=== PATIENT | male | born 1965 | race Caucasian/White ===

== ENCOUNTER → 2021-06-13 10:54 | Outpatient (REF) | payer OTHER, SELFPAY ==
--- NOTE | 2021-06-13 10:59 | CA_ITS ---
Transthoracic Echocardiogram Patient (Last, First, Middle): Willian Alvarez J Gender: Male Date of : 1965 Age: 56 Procedure Date: 06/13/2021 Procedure Type: Transthoracic Echocardiogram Location: OP Height: 170.18 cm Weight: 65.77 kg BSA: 1.76 m2 Heart Rate: bpm BP: 108 / 83 mmHg [employer]ung Nut [employer]er: JOANN Referring MD: Hudson Vasquez MD Symptoms: Z86.79 HX CMP, I45.10 RBBB Study Quality: Good ECG Rhythm: Sinus Conclusions: - The left ventricular systolic function is mildly decreased. The visually estimated ejection fraction is between 45-50%. - There is mildly decreased right ventricular systolic function. - No obvious valvular pathology seen on this study. Findings Left Ventricle Normal left ventricular cavity size. There is normal left ventricular wall thickness. The left ventricular systolic function is mildly decreased. The visually estimated ejection fraction is between 45-50%. There is no evidence of regional wall motion abnormalities. Diastolic function is normal for age. Right Ventricle Normal right ventricular cavity size. There is mildly decreased right ventricular systolic function. TAPSE 1.6cm. Atria Both atria are normal in size. Aortic Valve There is a normal trileaflet aortic valve. There is no aortic valve stenosis. There is no aortic valve regurgitation. Mitral Valve The mitral valve appears normal. There is trace mitral valve regurgitation. There is no mitral valve stenosis. Pulmonic Valve The pulmonic valve was not well visualized. Tricuspid Valve Normal tricuspid valve structure. There is trace tricuspid valve regurgitation. The pulmonary artery systolic pressure is normal. Great Vessels The asc aorta is normal in size. Venous The inferior vena cava is normal in size and collapses greater than 50% with inspiration. Pericardium/Pleural There is no evidence of pericardial effusion. Prior Study Comparison Changes noted compared to prior study dated: 05/05/2019. Slight decrease in LVEF; RV systolic function. Recommendations, Care & Conclusions No obvious valvular pathology seen on this study. Measurements 2D Linear Measurements IVSd: 1.17 0.6-0.9/0.6-1.0 cm LVIDd: 4.66 3.9-5.3/4.2-5.9 cm LVIDd Index: 2.65 2.4-3.2/2.2-3.1 cm/m2 LVIDs: 3.32 2.0-3.6 cm LVPWd: 0.98 0.7-1.1 cm Ao Root: 2.80 2.1-3.5 cm LA Diam: 2.60 2.7-3.8/3.0-4.0 cm LAIDs Index: 1.48 1.5-2.3 cm/m2 LV Mass: 223.50 67-162/88-224 g LV Mass Index: 126.99 43-95/49-115 g/m2 LVOT Diam: 2.10 3.0+(-)1.3 cm 2D Systolic Function EF 4C: 55.10 >55% EF 2C: 47.40 >55% EF BiP: 51.50 >55% Mitral Valve MV Pk E: 0.59 MV PK A: 0.60 MV Decel Time: 46.00 E/A: 1.00 E'Lateral: 8.27 E'Medial: 6.64 E/E' Med: 8.90 E/E' Lat: 7.10 PHT: 13.00 MVA PHT: 16.92 Decel Bibb: 12.84 Aortic Valve AoV Pk Bacilio: 1.14 AoV Pk Grad: 5.00 LVOT LVOT Pk Bacilio: 0.86 LVOT Mn Bacilio: 0.58 LVOT VTI: 0.13 LVOT Pk Grad: 3.00 LVOT Mn Grad: 2.00 LVOT Diam: 2.10 LVOT Area: 3.46 Diastolic Function MV Pk E: 0.59 MV Pk A: 0.60 E/A: 1.00 E'Medial: 6.64 E/E' Med: 8.90 E' Laterial: 8.27 E/E' Lat: 7.10 Right Ventricle TAPSE (mm): 1.83 Tricuspid Valve TR Pk Bacilio: 2.23 TR Pk Grad: 20.00 RA Press: 3.00 RVSP: 23.00 Great Vessels Aorta Ao Root-2D: 2.80 2.0-3.7 cm Ao Asc: 3.20 2.1-3.4 cm Updated in Other Vendor System with Status of Final Ugo Wheeler MD electronically signed on 06/14/2021 11:51:23 AM with status of Final
== END ==
LOC: HO.CARD 10:54
PROVIDERS: Visit Provider Internal Medicine Cardiovascular Disease
DX: I45.10 Unspecified right bundle-branch block (principal); Z86.79 Personal history of other diseases of the circulatory system
CPT/HCPCS: 93306

== ENCOUNTER 2021-06-22 12:55 | Outpatient (REF) | payer OTHER, SELFPAY | END 2021-06-22 12:56 | disposition home or self-care (01) | LOC: HO.HMGCLDS 12:55 | PROVIDERS: PCP Nurse Practitioner Family; Visit Provider Internal Medicine | DX: Z20.822 Contact with and (suspected) exposure to COVID-19 (principal) | CPT/HCPCS: C9803; U0003; U0005 ==

== ENCOUNTER 2022-01-13 21:59 | Emergency (ER) | payer OTHER, SELFPAY ==
[2022-01-13 22:38] VITALS: BP 117/77; BP 143/80; PULSE 73; PULSE 95; RESP 14; TEMP 36.4; O2SAT 97; O2SAT 98; BMI 21.5
--- NOTE | 2022-01-13 22:39 | ED.OVERDOSE ---
HPI - Overdose General Chief Complaint: ETOH/Substance Use Stated Complaint: overdose Time Seen by Provider: 01/13/22 22:12 Source: patient Mode of arrival: EMS History of Present Illness HPI Narrative: 56-year-old male who states that he has been sober for 1 year and is brought in by EMS after he was found unresponsive at the [facility] and EMS administered Narcan. Security here at the hospital seized a bag of heroin from the patient that he was trying to hide. Related Data Previous Rx's Medication Instructions Recorded lisinopril 10 mg tablet 10 mg PO DAILY 90 Days #90 tab 06/15/21 metoprolol succinate 100 mg 100 mg PO DAILY 90 Days #90 tab 06/15/21 tablet,extended release 24 hr ibuprofen 800 mg tablet 800 mg PO BID PRN #60 tab 08/13/21 Allergies Allergy/AdvReac Type Severity Reaction Status Date / Time No Known Allergies Allergy Unverified 07/27/20 15:09 Review of Systems Review of Systems: Pertinent positives and negatives as stated in HPI 10 point review of systems is otherwise negative. PMFSH Past Medical History Source: nursing notes reviewed Medical History HTN (hypertension) Social History Social History Advance Directives: No Advance Directives Information Provided: No Physical Exam Vital Signs: Vital Signs: Last Vital Signs Temp 97.5 F 01/13/22 22:38 Pulse 73 01/13/22 22:38 Resp 14 01/13/22 22:38 BP 143/80 H 01/13/22 22:38 Pulse Ox 97 01/13/22 22:38 BMI result Body Mass Index 21.5 VITAL SIGNS: Reviewed. GENERAL: Well developed, well nourished, in no acute distress. HEAD: Normocephalic/atraumatic, EYES: PERRLA, EOMI bilateral pupils are pinpoint OROPHARYNX: no oral lesions noted, posterior pharynx clear NECK: Supple, no adenopathy LUNGS: Normal breath sounds. No adventitious sounds or accessory muscle use. CARDIOVASCULAR: Regular rate and rhythm without noted murmurs ABDOMEN: Soft, non-tender, non-distended with bowel sounds. NEUROLOGIC: Alert and oriented x 4. Strength and sensation to light touch were grossly intact x 4. Course Course Course Narrative: 56-year-old male with history and clinical presentation consistent with her 1 overdose that was accidental in nature. Patient is doing well, alert, oriented x4. He will be discharged with home Narcan after to hours observation. On re-evaluation patient is doing well, alert and oriented x4, oxygenating well on room air and otherwise stable for discharge to home. Once again, patient was discharged home Narcan. Discharge Plan Discharge Clinical Impression: Accidental overdose Patient Disposition: Home, Self-Care Instructions: Adult Overdose (ED) Additional Instructions: Please follow-up with your primary care doctor Prescriptions: No Action lisinopril 10 mg tablet 10 mg PO DAILY 90 Days Qty: 90 3RF metoprolol succinate 100 mg tablet extended release 24 hr 100 mg PO DAILY 90 Days Qty: 90 0RF ibuprofen 800 mg tablet 800 mg PO BID PRN (Reason: for pain) Qty: 60 2RF
[2022-01-13] MEDS: Naloxone HCl Nasal TAKE HOME 4 MG SPRAY NOSTRILALT (23:45)
== END 2022-01-13 23:47 | disposition home or self-care (01) ==
PROVIDERS: Emergency Provider Student in an Organized Health Care Education/Training Program
DX: T40.1X1A Poisoning by heroin, accidental (unintentional), initial encounter (principal); Y92.9 Unspecified place or not applicable; Z79.899 Other long term (current) drug therapy; Z71.51 Drug abuse counseling and surveillance of drug abuser
CPT/HCPCS: 99283

== ENCOUNTER 2023-05-23 11:35 | Outpatient (AMB) | payer OTHER, SELFPAY ==
--- NOTE | 2023-05-23 11:36 | AM.OFFWIN_ITS ---
Intake Vital Signs 05/23/23 11:40 Height 5 ft 10 in Weight 148 lb BMI 21.2 BP 120/78 Blood Pressure Location Rt brachial Position Sitting Pulse 74 Pulse Source Pulse Oximeter Temp 97.6 F Temp Source Temporal Artery Scan Pulse Oximetry (%) 98 Oxygen Delivery Method Room Air Intake Visit Reasons: EST/right hand pointer finger swelling Intake Note: Patient here for right pointer finger swelling, he states he got a cut on the finger and has kept it clean with paroxide and triple antibiotic which seemed to have been working or so he thought and then he noticed that it started to get swollen in the middle part of his finger but now it seems to be moving up the finger more and is warm to the touch, unable to bend. Patient Tobacco Use Status: Current everyday Tobacco user Allergies No Known Allergies Allergy (Unverified 05/23/23 11:40) Do you need a note to return to daycare/school/sports/work: No HPI HPI Comments History of Present Illness Details This is a 58-year-old male presenting to the office in the setting of right 2nd finger erythema and swelling. Patient states he cut the tip of his finger on a piece of metal and sustained a very small laceration. He states he was cleaning the wound with hydrogen peroxide and triple antibiotic cream and covering the area with a bandage. He states the laceration has actually almost healed at this point. However, he started to develop swelling and erythema of the entire finger about 3 days ago. He denies any fevers or chills or other systemic symptoms. He denies any streaking of the erythema of his arm. He has limited range of motion of the finger due to swelling. Patient reports he is up-to-date on his Tdap booster and recently received a booster within the last 1 year. [facility] Medical History HTN (hypertension) Social History Patient Tobacco Use Status: Current everyday Tobacco user Review of Systems Const All systems reviewed & are unremarkable except as noted in HPI and below Denies chills and Denies fever(s) Eyes Reports no additional complaints ENT Reports no additional complaints Card Reports no additional complaints Resp Reports no additional complaints GI Reports no additional complaints Reports no additional complaints Musc Reports joint swelling Skin/Breast Reports change in pigmentation Physical Exam Vital Signs: Last Vital Signs Temp 97.6 F 05/23/23 11:40 Pulse 74 05/23/23 11:40 BP 120/78 05/23/23 11:40 Pulse Ox 98 05/23/23 11:40 Oxygen Delivery Method Room Air 05/23/23 11:40 BMI result Body Mass Index 21.2 Const General: cooperative and no acute distress Orientation/consciousness: patient oriented x3 HEENT Head: Yes normal to inspection Ears: hearing grossly normal bilaterally General nose exam: Normal external nose present Resp Effort & Inspection: normal respiratory effort Auscultation: clear to auscultation bilaterally Cardio Rate: regular rate Rhythm: regular rhythm Heart sounds: no gallops, no murmurs and no rubs Skin Other: Erythema and swelling of the entire right 2nd finger. No fluctuation or endurance to suggest abscess or drainable collection. No lymphangitic streaking. Neuro General: patient oriented x3 Extrem Other: Swelling of the right 2nd finger with decreased flexion of the finger due to swelling. Assessment & Plan Assessment & Plan (1) Cellulitis of finger, right: Code(s): L03.011 - Cellulitis of right finger Plan This is a 58-year-old male presenting with swelling and erythema of the right 2nd finger. His history and physical are most consistent with cellulitis of the finger. Low suspicion for septic arthritis or osteomyelitis. Start p.o. cephalexin 500 mg 4 times daily x7 days for treatment of cellulitis. Continue symptomatic management including ice to the area and elevation. Pain management with acetaminophen/ibuprofen. Patient instructed to follow-up here or proceed to the emergency room if he were to develop fever/chills, systemic symptoms, or lymphangitic streaking or persistent/worsening symptoms. Medications: New 2 cephalexin 500 mg PO QID 28 caps 0RF Coding Level of Care Code Est Pt Level 3 (61261) Diagnoses Cellulitis of finger, right L03.011
[2023-05-23 11:40] VITALS: BP 120/78; PULSE 74; TEMP 36.4; O2SAT 98; BMI 21.2
== END 2023-05-23 12:18 | disposition home or self-care (01) ==
PROVIDERS: Visit Provider Physician Assistant Medical
DX: L03.011 Cellulitis of right finger (principal)
CPT/HCPCS: 99213